=== PATIENT | female | born 1955 | race Caucasian/White ===

== ENCOUNTER 2016-09-12 06:35 | Inpatient (IN) | payer OTHER ==
[~2016-09-12] VITALS: Ht 152.4 cm; Wt 60.4 kg
[~2016-09-12 06:35] MED LIST: ACID REDUCER20 MG PO; ALKA-SELTZER P1 EA12 PO; AMOXICILLIN500 M1 PO; ASPIRIN EC325 MG PO; ATIVAN0.5 MG PO; ATORVASTATIN CA20 MG PO; BANOPHEN25 M2 PO; CLOPIDOGREL75 MG PO; COLACE100 MG PO; COMPAZINE10 MG PO; CYCLOBENZAPRINE10 MG PO; DILAUDID2 MG PO; DILAUDID4 MG PO; FLONASE16 G1 BOTH NARES; GABAPENTIN100 MG PO; GABAPENTIN300 MG PO; GUAIFENESIN WI120 ML PO; KEFLEX250 MG PO; LIPITOR40 MG PO; LISINOPRIL2.5 MG PO; LOMOTIL,LONO1 TABLET PO; METHOCARBAMOL750 MG PO; MOTRIN600 MG PO; NEURONTIN300 MG PO; NEXIUM40 MG PO; NICOTINE PATCH1 EAC2 TD; NITROSTAT0.4 MG SL; NORCO 5/3251 TABLET PO; OMEPRAZOLE40 M1 PO; PERCOCET 10/1 TABLET PO; PERCOCET 5/31 TABLET PO; PERCOCET 7.51 TABLET PO; PHENERGAN25 MG PR; PRILOSEC20 MG PO; PROAIR HFA8.5 GM IH; PROCHLORPERAZIN10 MG PO; SILVER SULFADIA50 GM TP; ST. JOSEPH ASPI81 MG PO; TIZANIDINE HCL4 M1 PO; TIZANIDINE HCL4 MG PO; TOPROL XL25 MG PO; UNABLEOBTAIN; VENTOLIN HFA18 GM IH; ZESTRIL2.5 MG PO; ZOFRAN4 MG PO
[2016-09-12 07:39] VITALS: BP 134/73
[2016-09-12 07:46] LABS: EOSINOPHIL (%) 2.5 % (0-5); EOSINOPHIL COUNT 0.1 K/uL (0-0.3); IMMATURE GRANULOCYTE (%) 0.4 % (0.0-0.7); IMMATURE GRANULOCYTE COUNT 0.2 K/uL; LYMPHOCYTE COUNT 1.3 K/uL (1.0-2.8); MCH 27.4 PG (29.0-34.0); MONOCYTE (%) 15.2 % (3-12); MONOCYTE COUNT 0.9 K/uL (0-0.8); NEUTROPHIL (%) 57.9 % (45-76); NEUTROPHIL COUNT 3.2 K/uL (1.8-6.4); PLATELET COUNT 156 K/uL (156-360); RBC DIS.WIDTH-CV 15.5 % (11.8-14.6); RBC DIS.WIDTH-SD 46.8 % (39-53); RED BLOOD COUNT 4.46 M/uL (3.80-5.20); WHITE BLOOD COUNT 5.6 K/uL (4.1-10.2)
[2016-09-12 07:55] LABS: INTER. NORMALIZED RATIO 1.1; PROTHROMBIN TIME 11.1 (9.2-11.2)
[2016-09-12 08:04] LABS: ANION GAP 7 MEQ/L (2-14); CHLORIDE 106 MEQ/L (99-109); POTASSIUM 3.8 MEQ/L (3.7-5.4); SAMPLE HEMOLYSIS CHECK 0; SAMPLE ICTERIC CHECK 0; SAMPLE LIPEMIA CHECK 0; SODIUM 137 MEQ/L (136-147); TOTAL BILIRUBIN 0.8 MG/DL (0.0-1.0)
[2016-09-12 08:10] LABS: ALKALINE PHOSPHATASE 131 IU/L (3-129); GFR ESTIMATE (CALCULATED) > 59 mL/min/; GLUCOSE 126 mg/dL (70-99); UREA NITROGEN (BUN) 14 mg/dL (9-23)
[2016-09-12 15:20] VITALS: BP 120/68
[2016-09-12 16:00] VITALS: BP 130/73
[2016-09-12 17:00] LABS: METH RESISTANT S AUREUS PCR NEGATIVE (NEGATIVE)
[2016-09-12 17:04] LABS: PROBE CHECK PASS; SPECIMEN PROCESSING CONTROL PASS
[2016-09-12 18:00] VITALS: BP 106/69
[2016-09-12 20:00] VITALS: BP 109/62
[2016-09-12 22:00] VITALS: BP 96/46
[2016-09-13] VITALS (9 sets, daily range): BP systolic 85–111; BP diastolic 43–77
[2016-09-13 06:45] LABS: ANION GAP 11 MEQ/L (2-14); CHLORIDE 104 MEQ/L (99-109); GFR ESTIMATE (CALCULATED) > 59 mL/min/; GLUCOSE 148 mg/dL (70-99); POTASSIUM 4.4 MEQ/L (3.7-5.4); SAMPLE HEMOLYSIS CHECK 0; SAMPLE ICTERIC CHECK 0; SAMPLE LIPEMIA CHECK 0; SODIUM 139 MEQ/L (136-147); UREA NITROGEN (BUN) 16 mg/dL (9-23)
[2016-09-13 06:46] LABS: HEMATOCRIT 27.9 % (36.0-46.0); MCH 27.3 PG (29.0-34.0); MCHC 32.3 G/DL (30.0-36.0); MCV 84.5 FL (83-99); MEAN PLAT.VOLUME 10.4 uM^3 (9.5-12.4); PLATELET COUNT 119 K/uL (156-360); RBC DIS.WIDTH-CV 15.6 % (11.8-14.6); RBC DIS.WIDTH-SD 48.3 % (39-53)
[2016-09-13 06:50] LABS: WHITE BLOOD COUNT 12.3 K/uL (4.1-10.2)
[2016-09-14] VITALS (8 sets, daily range): BP systolic 104–133; BP diastolic 46–72
[2016-09-14 06:43] LABS: HEMATOCRIT 27.5 % (36.0-46.0); MCH 27.6 PG (29.0-34.0); MCV 86.2 FL (83-99); MEAN PLAT.VOLUME 10.9 uM^3 (9.5-12.4); PLATELET COUNT 127 K/uL (156-360); RBC DIS.WIDTH-SD 51.2 % (39-53); RED BLOOD COUNT 3.19 M/uL (3.80-5.20)
[2016-09-14 06:46] LABS: WHITE BLOOD COUNT 8.2 K/uL (4.1-10.2)
[2016-09-14 07:29] LABS: ANION GAP 5 MEQ/L (2-14); CHLORIDE 106 MEQ/L (99-109); GFR ESTIMATE (CALCULATED) > 59 mL/min/; POTASSIUM 4.2 MEQ/L (3.7-5.4); SAMPLE HEMOLYSIS CHECK 0; SAMPLE ICTERIC CHECK 0; SAMPLE LIPEMIA CHECK 0; SODIUM 138 MEQ/L (136-147); UREA NITROGEN (BUN) 18 mg/dL (9-23)
[2016-09-14 07:30] LABS: GLUCOSE 100 mg/dL (70-99)
[2016-09-15] VITALS (21 sets, daily range): BP systolic 72–128; BP diastolic 38–64
[2016-09-15 13:51] LABS: HEMATOCRIT 27.7 % (36.0-46.0); MCH 27.2 PG (29.0-34.0); MCHC 31.4 G/DL (30.0-36.0); MCV 86.6 FL (83-99); MEAN PLAT.VOLUME 10.2 uM^3 (9.5-12.4); PLATELET COUNT 146 K/uL (156-360); RBC DIS.WIDTH-CV 16.3 % (11.8-14.6); RBC DIS.WIDTH-SD 51.5 % (39-53); WHITE BLOOD COUNT 7.3 K/uL (4.1-10.2)
[2016-09-15 14:21] LABS: ANION GAP 7 MEQ/L (2-14); CHLORIDE 104 MEQ/L (99-109); POTASSIUM 3.8 MEQ/L (3.7-5.4); SAMPLE HEMOLYSIS CHECK 0; SAMPLE ICTERIC CHECK 0; SAMPLE LIPEMIA CHECK 0; SODIUM 137 MEQ/L (136-147)
[2016-09-15 14:27] LABS: GFR ESTIMATE (CALCULATED) > 59 mL/min/; GLUCOSE 138 mg/dL (70-99); UREA NITROGEN (BUN) 13 mg/dL (9-23)
[2016-09-16] VITALS (9 sets, daily range): BP systolic 80–126; BP diastolic 42–69
[2016-09-17 03:30] VITALS: BP 119/59
[2016-09-17 06:49] LABS: HEMATOCRIT 29.6 % (36.0-46.0); MCH 27.5 PG (29.0-34.0); MCHC 31.4 G/DL (30.0-36.0); MCV 87.6 FL (83-99); PLATELET COUNT 145 K/uL (156-360); RBC DIS.WIDTH-CV 16.2 % (11.8-14.6); RBC DIS.WIDTH-SD 51.7 % (39-53); RED BLOOD COUNT 3.38 M/uL (3.80-5.20); WHITE BLOOD COUNT 7.4 K/uL (4.1-10.2)
[2016-09-17 07:00] VITALS: BP 110/54
[2016-09-17 07:14] LABS: ANION GAP 8 MEQ/L (2-14); CHLORIDE 99 MEQ/L (99-109); GFR ESTIMATE (CALCULATED) > 59 mL/min/; GLUCOSE 116 mg/dL (70-99); POTASSIUM 4.3 MEQ/L (3.7-5.4); SAMPLE HEMOLYSIS CHECK 0; SAMPLE ICTERIC CHECK 0; SAMPLE LIPEMIA CHECK 0; SODIUM 137 MEQ/L (136-147); UREA NITROGEN (BUN) 11 mg/dL (9-23)
[2016-09-17 11:39] VITALS: BP 104/63
[2016-09-17 16:27] VITALS: BP 92/51
[2016-09-17] MEDS ORDERED: DIGOXIN125 MCG PO (17:03)
[2016-09-17] MEDS ORDERED: OXYCODONE HCL5 MG PO (17:03)
[2016-09-17] MEDS ORDERED: DOCUSATE SODIU100 MG PO (17:03)
== END 2016-09-17 18:54 | disposition home health service (06) | DRG 165 ==
LOC: 4EAST 06:35 → 2SOUTH 06:35 → EDSTATUS 10:43 → SDC 10:43 → 2SOUTH 10:44 → 4WEST 15:13 → 4EAST 09-16 21:39
PROVIDERS: Internal Medicine Critical Care Medicine; Thoracic Surgery (Cardiothoracic Vascular Surgery)
DX: C34.32 Malignant neoplasm of lower lobe, left bronchus or lung (principal); I25.10 Atherosclerotic heart disease of native coronary artery without angina pectoris; Z95.5 Presence of coronary angioplasty implant and graft; I10 Essential (primary) hypertension; J44.9 Chronic obstructive pulmonary disease, unspecified; M19.90 Unspecified osteoarthritis, unspecified site; E78.5 Hyperlipidemia, unspecified; F17.200 Nicotine dependence, unspecified, uncomplicated; I95.1 Orthostatic hypotension
CPT/HCPCS: 71010; 71020; 80048; 80053; 85025; 85027; 85610; 86850; 86900; 86901; 86920; 87641; 88300; 88304; 88305; 88309; 94010; 94640; 94640 76; 94760; 94799; 97530 GO; 97530 GP; 99202; J0131; J0690; J1100; J1160; J1200; J1644; J1885; J2250; J2370; J2405; J2710; J3010; J7050; J7120; P9045; S0020

== ENCOUNTER 2016-10-31 21:00 | Emergency (ER) | payer OTHER ==
[~2016-10-31] VITALS: Ht 152.4 cm; Wt 59.0 kg
[~2016-10-31 21:00] MED LIST changes: +DIGOXIN125 MCG PO; +DOCUSATE SODIU100 MG PO; +OXYCODONE HCL5 MG PO
[2016-10-31] MEDS ORDERED: LIDODERM 5% P1 PATCH TD (22:37)
[2016-10-31 23:08] VITALS: BP 106/55
== END 2016-10-31 23:10 | disposition home or self-care (01) ==
LOC: EME → EDBD 21:00 → EME 21:00
DX: S29.011A Strain of muscle and tendon of front wall of thorax, initial encounter (principal); J90 Pleural effusion, not elsewhere classified; E78.5 Hyperlipidemia, unspecified; I25.2 Old myocardial infarction; F17.200 Nicotine dependence, unspecified, uncomplicated; Z99.81 Dependence on supplemental oxygen; Z90.2 Acquired absence of lung [part of]; Z85.048 Personal history of other malignant neoplasm of rectum, rectosigmoid junction, and anus
CPT/HCPCS: 71020; 99281; 99283

== ENCOUNTER 2017-12-27 20:13 | Inpatient (IN) | payer OTHER ==
[~2017-12-27] VITALS: Ht 152.4 cm; Wt 70.2 kg
[~2017-12-27 20:13] MED LIST changes: +LIDODERM 5% P1 PATCH TD; +LIPITOR10 MG PO
[2017-12-27 20:50] LABS: HEMATOCRIT 39.8 % (36.0-46.0); HEMOGLOBIN 12.9 G/DL (11.9-15.5); MCH 27.2 PG (29.0-34.0); MCHC 32.4 G/DL (30.0-36.0); PLATELET COUNT 247 K/uL (156-360); RBC DIS.WIDTH-CV 22.1 % (11.8-14.6); RBC DIS.WIDTH-SD 66.8 % (39-53); RED BLOOD COUNT 4.74 M/uL (3.80-5.20); WHITE BLOOD COUNT 15.6 K/uL (4.1-10.2)
[2017-12-27 20:51] LABS: BASOPHIL (%) 0.4 % (0-1); BASOPHIL COUNT 0.1 K/uL (0-0.1); EOSINOPHIL (%) 0.3 % (0-5); LYMPHOCYTE (%) 8.2 % (15-42); LYMPHOCYTE COUNT 1.3 K/uL (1.0-2.8); MONOCYTE (%) 13.7 % (3-12); MONOCYTE COUNT 2.1 K/uL (0-0.8); NEUTROPHIL (%) 76.4 % (45-76); NEUTROPHIL COUNT 11.9 K/uL (1.8-6.4)
[2017-12-27 20:54] LABS: BICARBONATE 27.9 mEq/L (22-26); CARBOXY HGB 2.8 % (0-5); COMMENTS - BLOOD GASES C+; METHEMOGLOBIN 1.1 % (0-1.5); O2 FLOW 6 L/MIN; PCO2 43 mm Hg (35-45); PO2 67 mm Hg (80-100); SITE RR; pH 7.42 (7.35-7.45)
[2017-12-27 20:55] LABS: DEVICE NC; TOTAL RESP RATE 16 resp/min
[2017-12-27 21:03] LABS: CHLORIDE 99 mEq/L (99-109); POTASSIUM 2.9 mEq/L (3.7-5.4); SODIUM 136 mEq/L (136-147)
[2017-12-27 21:04] LABS: GLUCOSE 116 mg/dL (70-99)
[2017-12-27 21:08] LABS: CREATININE 0.9 mg/dL (0.6-1.3); GFR ESTIMATE (CALCULATED) > 59 mL/min/
[2017-12-27 21:09] LABS: UREA NITROGEN (BUN) 22 mg/dL (9-23)
[2017-12-27 21:12] LABS: TROP-I INTERPRETATION NEGATIVE; TROPONIN-I < 0.01 ng/mL (0.0-0.30)
[2017-12-27] MEDS ORDERED: IMODIUM A-D2 M2 PO (22:44)
[2017-12-27] MEDS ORDERED: BACLOFEN10 MG PO (22:44)
[2017-12-27] MEDS ORDERED: OXYCODONE HCL10 MG PO (22:44)
[2017-12-28 03:10] VITALS: BP 95/51
[2017-12-28 06:17] LABS: HEMATOCRIT 33.9 % (36.0-46.0); MCH 27.5 PG (29.0-34.0); MCHC 32.4 G/DL (30.0-36.0); MCV 84.8 FL (83-99); PLATELET COUNT 195 K/uL (156-360); RBC DIS.WIDTH-SD 68.5 % (39-53); WHITE BLOOD COUNT 10.9 K/uL (4.1-10.2)
[2017-12-28 06:34] LABS: ALBUMIN 2.3 G/DL (3.2-4.8); ALKALINE PHOSPHATASE 81 IU/L (3-129); ALT (GPT) 15 IU/L (3-49); AST (GOT) 17 IU/L (2-34); CHLORIDE 106 MEQ/L (99-109); CREATININE 0.8 MG/DL (0.6-1.3); GFR ESTIMATE (CALCULATED) > 59 mL/min/; SODIUM 137 MEQ/L (136-147); TOTAL BILIRUBIN 1.5 MG/DL (0.0-1.0); TOTAL PROTEIN 5.6 G/DL (6.4-8.3); UREA NITROGEN (BUN) 20 mg/dL (9-23)
[2017-12-28 06:35] LABS: GLUCOSE 195 mg/dL (70-99); POTASSIUM 4.5 MEQ/L (3.7-5.4)
[2017-12-28 08:00] VITALS: BP 94/87
[2017-12-28 12:00] VITALS: BP 108/57
[2017-12-28 13:41] LABS: MAGNESIUM 1.6 mg/dl (1.3-2.7)
[2017-12-28 18:21] VITALS: BP 106/55
[2017-12-28 19:28] VITALS: BP 97/50
[2017-12-28 23:22] VITALS: BP 97/56
[2017-12-29 03:53] VITALS: BP 108/58
[2017-12-29 06:48] LABS: HEMATOCRIT 37.5 % (36.0-46.0); HEMOGLOBIN 11.8 G/DL (11.9-15.5); MCH 27.1 PG (29.0-34.0); MCHC 31.5 G/DL (30.0-36.0); RBC DIS.WIDTH-CV 22.4 % (11.8-14.6); RBC DIS.WIDTH-SD 69.7 % (39-53); RED BLOOD COUNT 4.36 M/uL (3.80-5.20); WHITE BLOOD COUNT 19.6 K/uL (4.1-10.2)
[2017-12-29 06:53] LABS: PLATELET COUNT 265 K/uL (156-360)
[2017-12-29 07:13] LABS: CHLORIDE 109 MEQ/L (99-109); CREATININE 0.8 MG/DL (0.6-1.3); GFR ESTIMATE (CALCULATED) > 59 mL/min/; GLUCOSE 163 mg/dL (70-99); POTASSIUM 4.1 MEQ/L (3.7-5.4); SODIUM 140 MEQ/L (136-147); UREA NITROGEN (BUN) 23 mg/dL (9-23)
[2017-12-29 07:18] VITALS: BP 109/55
[2017-12-29 11:40] VITALS: BP 122/57
[2017-12-29 15:53] VITALS: BP 106/55
[2017-12-29 21:30] VITALS: BP 145/69
[2017-12-29 23:22] VITALS: BP 105/57
[2017-12-30 04:05] VITALS: BP 97/56
[2017-12-30 07:24] VITALS: BP 108/59
[2017-12-30 12:03] VITALS: BP 110/67
[2017-12-30 17:02] VITALS: BP 117/64
[2017-12-30 19:07] VITALS: BP 122/64
[2017-12-30 23:03] VITALS: BP 127/66
[2017-12-31 02:55] VITALS: BP 100/52
[2017-12-31 07:03] LABS: BASOPHIL (%) 0.3 % (0-1); BASOPHIL COUNT 0.1 K/uL (0-0.1); EOSINOPHIL (%) 0 % (0-5); HEMATOCRIT 37.2 % (36.0-46.0); HEMOGLOBIN 11.2 G/DL (11.9-15.5); IMMATURE GRANULOCYTE (%) 2.3 % (0.0-0.7); LYMPHOCYTE (%) 3.7 % (15-42); LYMPHOCYTE COUNT 0.6 K/uL (1.0-2.8); MCH 26.2 PG (29.0-34.0); MCHC 30.1 G/DL (30.0-36.0); MCV 87.1 FL (83-99); MONOCYTE COUNT 0.8 K/uL (0-0.8); NEUTROPHIL (%) 88.7 % (45-76); PLATELET COUNT 227 K/uL (156-360); RBC DIS.WIDTH-CV 23.1 % (11.8-14.6); RBC DIS.WIDTH-SD 73.7 % (39-53); RED BLOOD COUNT 4.27 M/uL (3.80-5.20); WHITE BLOOD COUNT 15.8 K/uL (4.1-10.2)
[2017-12-31 07:29] LABS: CHLORIDE 113 MEQ/L (99-109); CREATININE 0.7 MG/DL (0.6-1.3); GFR ESTIMATE (CALCULATED) > 59 mL/min/; GLUCOSE 124 mg/dL (70-99); POTASSIUM 4.7 MEQ/L (3.7-5.4); SODIUM 146 MEQ/L (136-147); UREA NITROGEN (BUN) 30 mg/dL (9-23)
[2017-12-31 07:52] VITALS: BP 117/77
[2017-12-31 11:44] VITALS: BP 136/75
[2017-12-31 13:06] LABS: BASE EXCESS -1.5 mEq/L (-3 to +3); BICARBONATE 26.2 mEq/L (22-26); COMMENTS - BLOOD GASES A+C+; METHEMOGLOBIN 1.2 % (0-1.5); PCO2 57 mm Hg (35-45); PO2 253 mm Hg (80-100); SITE RR
[2017-12-31 13:07] LABS: DEVICE NRB; FI02 100 %; O2 FLOW 15 L/MIN; TOTAL RESP RATE 23 resp/min; pH 7.27 (7.35-7.45)
[2017-12-31 15:18] LABS: BASE EXCESS -1.1 mEq/L (-3 to +3); BICARBONATE 25.7 mEq/L (22-26); CARBOXY HGB 2.2 % (0-5); METHEMOGLOBIN 1.7 % (0-1.5); pH 7.31 (7.35-7.45)
[2017-12-31 15:19] LABS: COMMENTS - BLOOD GASES C+; DEVICE HHFNC; FI02 60 %; O2 FLOW 50 L/MIN; PCO2 51 mm Hg (35-45); PO2 60 mm Hg (80-100); SITE RB
[2017-12-31 15:34] VITALS: BP 173/94
[2017-12-31 16:02] VITALS: BP 142/97
[2017-12-31 20:25] VITALS: BP 139/79
[2018-01-01 00:01] LABS: APPEARANCE CLEAR ((CLEAR)); BILIRUBIN NEGATIVE; BLOOD MODERATE; COLOR YELLOW ((YELLOW)); GLUCOSE (STRIP) NEGATIVE; KETONES NEGATIVE; LEUKOCYTES NEGATIVE; NITRITE NEGATIVE; PROTEIN (STRIP) 30; SPECIFIC GRAVITY 1.035 (1.000-1.030); UROBILINOGEN 0.2 MG/DL (0.2-1.0)
[2018-01-01 00:18] LABS: BACTERIA NONE SEEN /HPF; EPITHELIAL CELLS RARE /HPF; MUCUS TRACE /LPF; UCUL ADDED? NO; WHITE BLOOD CELLS 0-5 /HPF (0-5)
[2018-01-01 00:26] VITALS: BP 145/68
[2018-01-01 04:50] VITALS: BP 144/79
[2018-01-01 05:28] LABS: BASOPHIL (%) 0.2 % (0-1); EOSINOPHIL (%) 0 % (0-5); HEMATOCRIT 34.5 % (36.0-46.0); HEMOGLOBIN 10.6 G/DL (11.9-15.5); IMMATURE GRANULOCYTE (%) 2.7 % (0.0-0.7); LYMPHOCYTE (%) 4.6 % (15-42); LYMPHOCYTE COUNT 0.6 K/uL (1.0-2.8); MCH 27.1 PG (29.0-34.0); MCHC 30.7 G/DL (30.0-36.0); MCV 88.2 FL (83-99); MONOCYTE (%) 4.7 % (3-12); MONOCYTE COUNT 0.6 K/uL (0-0.8); NEUTROPHIL (%) 87.8 % (45-76); NEUTROPHIL COUNT 11.1 K/uL (1.8-6.4); PLATELET COUNT 224 K/uL (156-360); RBC DIS.WIDTH-CV 23.1 % (11.8-14.6); RBC DIS.WIDTH-SD 73.3 % (39-53); RED BLOOD COUNT 3.91 M/uL (3.80-5.20); WHITE BLOOD COUNT 12.6 K/uL (4.1-10.2)
[2018-01-01 05:57] LABS: CHLORIDE 114 MEQ/L (99-109); CREATININE 0.6 MG/DL (0.6-1.3); GFR ESTIMATE (CALCULATED) > 59 mL/min/; GLUCOSE 126 mg/dL (70-99); POTASSIUM 5.3 MEQ/L (3.7-5.4); SODIUM 146 MEQ/L (136-147); UREA NITROGEN (BUN) 31 mg/dL (9-23)
[2018-01-01 06:03] LABS: PCO2 55 mm Hg (35-45); PO2 61 mm Hg (80-100); pH 7.33 (7.35-7.45)
[2018-01-01 06:04] LABS: CARBOXY HGB 2.3 % (0-5); COMMENTS - BLOOD GASES C+; DEVICE HHFC; FI02 80 %; METHEMOGLOBIN 1.6 % (0-1.5); SITE RR; TOTAL RESP RATE 26 resp/min
[2018-01-01 08:52] VITALS: BP 143/71
[2018-01-01 08:55] LABS: IMM.RETIC FRACTION 12.5 % (3-19); RETIC HGB EQUIVALENT 30.4 (28-36); RETICULOCYTE COUNT 1.8 % (0.5-1.8)
[2018-01-01 10:08] LABS: IRON 58 MCG/DL (35-150); MAGNESIUM 2.2 mg/dl (1.3-2.7)
[2018-01-01 10:09] LABS: TRANSFERRIN (TIBC) 181.8 mg/dL (215-380); TRANSFERRIN SATUR. 32 % (20-55)
[2018-01-01 10:44] LABS: FERRITIN 76 NG/ML (10-291)
[2018-01-01 11:24] LABS: FOLIC ACID (FOLATE) 9.5 NG/ML (5.0-22.0)
[2018-01-01 12:19] LABS: HEMOGLOBIN A1c (GLYCOHEMOGLOB) 5.8 % (Below 5.7)
[2018-01-01 12:53] VITALS: BP 133/76
[2018-01-01 16:21] VITALS: BP 126/74
[2018-01-01 19:30] VITALS: BP 143/68
[2018-01-02 00:10] VITALS: BP 154/77
[2018-01-02 04:36] VITALS: BP 142/69
[2018-01-02 05:00] LABS: BASOPHIL (%) 0.3 % (0-1); EOSINOPHIL (%) 0 % (0-5); HEMATOCRIT 35.9 % (36.0-46.0); HEMOGLOBIN 11.3 G/DL (11.9-15.5); IMMATURE GRANULOCYTE (%) 4.2 % (0.0-0.7); LYMPHOCYTE (%) 5.6 % (15-42); LYMPHOCYTE COUNT 0.4 K/uL (1.0-2.8); MCH 27.7 PG (29.0-34.0); MCHC 31.5 G/DL (30.0-36.0); MONOCYTE (%) 4.3 % (3-12); MONOCYTE COUNT 0.3 K/uL (0-0.8); NEUTROPHIL (%) 85.6 % (45-76); NEUTROPHIL COUNT 6.8 K/uL (1.8-6.4); PLATELET COUNT 199 K/uL (156-360); RBC DIS.WIDTH-CV 22.6 % (11.8-14.6); RBC DIS.WIDTH-SD 72.4 % (39-53); RED BLOOD COUNT 4.08 M/uL (3.80-5.20); WHITE BLOOD COUNT 7.9 K/uL (4.1-10.2)
[2018-01-02 05:08] LABS: ALBUMIN 2.8 g/dL (3.2-4.8); POTASSIUM 5.1 mEq/L (3.7-5.4); SODIUM 148 mEq/L (136-147)
[2018-01-02 05:10] LABS: GLUCOSE 154 mg/dL (70-99); TOTAL PROTEIN 5.9 g/dL (6.4-8.3)
[2018-01-02 05:12] LABS: TOTAL BILIRUBIN 0.9 mg/dL (0.0-1.0)
[2018-01-02 05:14] LABS: ALKALINE PHOSPHATASE 129 IU/L (3-129); CREATININE 0.7 mg/dL (0.6-1.3); GFR ESTIMATE (CALCULATED) > 59 mL/min/
[2018-01-02 05:15] LABS: UREA NITROGEN (BUN) 36 mg/dL (9-23)
[2018-01-02 05:16] LABS: AST (GOT) 32 IU/L (2-34)
[2018-01-02 05:17] LABS: ALT (GPT) 42 IU/L (3-49)
[2018-01-02 05:20] LABS: CHLORIDE 109 mEq/L (99-109)
[2018-01-02 07:44] VITALS: BP 131/72
[2018-01-02 11:40] VITALS: BP 137/66
[2018-01-02 21:00] VITALS: BP 144/69
[2018-01-03] VITALS (7 sets, daily range): BP systolic 104–146; BP diastolic 56–70
[2018-01-03 06:08] LABS: BASOPHIL (%) 0.2 % (0-1); EOSINOPHIL (%) 0 % (0-5); HEMATOCRIT 34.6 % (36.0-46.0); HEMOGLOBIN 10.9 G/DL (11.9-15.5); LYMPHOCYTE COUNT 0.4 K/uL (1.0-2.8); MCH 27.8 PG (29.0-34.0); MCHC 31.5 G/DL (30.0-36.0); MCV 88.3 FL (83-99); MONOCYTE (%) 3.4 % (3-12); MONOCYTE COUNT 0.3 K/uL (0-0.8); NEUTROPHIL (%) 88.4 % (45-76); PLATELET COUNT 198 K/uL (156-360); RBC DIS.WIDTH-CV 22.6 % (11.8-14.6); RBC DIS.WIDTH-SD 71.7 % (39-53); RED BLOOD COUNT 3.92 M/uL (3.80-5.20)
[2018-01-03 06:36] LABS: ALBUMIN 2.7 G/DL (3.2-4.8); CHLORIDE 105 MEQ/L (99-109); CREATININE 0.6 MG/DL (0.6-1.3); GFR ESTIMATE (CALCULATED) > 59 mL/min/; GLUCOSE 175 mg/dL (70-99); TOTAL PROTEIN 5.8 G/DL (6.4-8.3); UREA NITROGEN (BUN) 35 mg/dL (9-23)
[2018-01-03 06:38] LABS: ALKALINE PHOSPHATASE 106 IU/L (3-129); ALT (GPT) 55 IU/L (3-49); AST (GOT) 56 IU/L (2-34); SODIUM 140 MEQ/L (136-147); TOTAL BILIRUBIN 0.8 MG/DL (0.0-1.0)
[2018-01-04 03:53] VITALS: BP 118/76
[2018-01-04 05:25] LABS: HEMATOCRIT 37.2 % (36.0-46.0); HEMOGLOBIN 11.5 G/DL (11.9-15.5); MCH 26.7 PG (29.0-34.0); MCHC 30.9 G/DL (30.0-36.0); MCV 86.5 FL (83-99); PLATELET COUNT 194 K/uL (156-360); RBC DIS.WIDTH-CV 22.3 % (11.8-14.6); RBC DIS.WIDTH-SD 68.7 % (39-53); WHITE BLOOD COUNT 10.1 K/uL (4.1-10.2)
[2018-01-04 05:53] LABS: CHLORIDE 103 MEQ/L (99-109); CREATININE 0.5 MG/DL (0.6-1.3); GFR ESTIMATE (CALCULATED) > 59 mL/min/; GLUCOSE 136 mg/dL (70-99); POTASSIUM 5.1 MEQ/L (3.7-5.4); SODIUM 139 MEQ/L (136-147); UREA NITROGEN (BUN) 32 mg/dL (9-23)
[2018-01-04 07:19] VITALS: BP 120/58
[2018-01-04 11:31] VITALS: BP 101/57
[2018-01-04 15:11] VITALS: BP 129/56
[2018-01-04 19:15] VITALS: BP 118/59
[2018-01-05 00:33] VITALS: BP 126/71
[2018-01-05 04:11] VITALS: BP 108/74
[2018-01-05 04:54] LABS: HEMATOCRIT 38.5 % (36.0-46.0); HEMOGLOBIN 12.1 G/DL (11.9-15.5); MCH 27.4 PG (29.0-34.0); MCHC 31.4 G/DL (30.0-36.0); MCV 87.1 FL (83-99); PLATELET COUNT 174 K/uL (156-360); RBC DIS.WIDTH-CV 22.2 % (11.8-14.6); RBC DIS.WIDTH-SD 69.5 % (39-53); RED BLOOD COUNT 4.42 M/uL (3.80-5.20); WHITE BLOOD COUNT 8.7 K/uL (4.1-10.2)
[2018-01-05 05:05] LABS: CHLORIDE 104 mEq/L (99-109); POTASSIUM 5.1 mEq/L (3.7-5.4); SODIUM 142 mEq/L (136-147)
[2018-01-05 05:07] LABS: GLUCOSE 170 mg/dL (70-99)
[2018-01-05 05:11] LABS: CREATININE 0.7 mg/dL (0.6-1.3); GFR ESTIMATE (CALCULATED) > 59 mL/min/
[2018-01-05 05:12] LABS: UREA NITROGEN (BUN) 41 mg/dL (9-23)
[2018-01-05 07:09] VITALS: BP 100/66
[2018-01-05 11:05] VITALS: BP 137/80
[2018-01-05 15:01] VITALS: BP 107/57
[2018-01-05 20:50] VITALS: BP 146/73
[2018-01-06] VITALS (7 sets, daily range): BP systolic 111–131; BP diastolic 65–83
[2018-01-06 05:14] LABS: HEMATOCRIT 40.2 % (36.0-46.0); HEMOGLOBIN 12.5 G/DL (11.9-15.5); MCH 26.8 PG (29.0-34.0); MCHC 31.1 G/DL (30.0-36.0); MCV 86.1 FL (83-99); RBC DIS.WIDTH-CV 22.5 % (11.8-14.6); RBC DIS.WIDTH-SD 68.4 % (39-53); RED BLOOD COUNT 4.67 M/uL (3.80-5.20); WHITE BLOOD COUNT 16.6 K/uL (4.1-10.2)
[2018-01-06 05:25] LABS: PLATELET COUNT 244 K/uL (156-360)
[2018-01-06 05:41] LABS: CHLORIDE 104 MEQ/L (99-109); CREATININE 0.7 MG/DL (0.6-1.3); GFR ESTIMATE (CALCULATED) > 59 mL/min/; GLUCOSE 144 mg/dL (70-99); SODIUM 141 MEQ/L (136-147); UREA NITROGEN (BUN) 42 mg/dL (9-23)
[2018-01-07 04:00] VITALS: BP 123/70
[2018-01-07 08:10] VITALS: BP 109/69
[2018-01-07 12:49] VITALS: BP 110/58
[2018-01-07] MEDS ORDERED: DULERA 200 MCG/13 GM IH (14:18)
[2018-01-07] MEDS ORDERED: CYANOCOBALAM1000 MCG PO (14:18)
[2018-01-07] MEDS ORDERED: NICOTINE PATCH1 EAC2 TD (14:18)
[2018-01-07] MEDS ORDERED: PREDNISONE10 MG PO (14:18)
[2018-01-07] MEDS ORDERED: FOLIC ACID1 MG PO (14:18)
[2018-01-07] MEDS ORDERED: FERROUS SULFAT325 MG PO (14:18)
[2018-01-07] MEDS ORDERED: PROAIR HFA8.5 GM IH (14:18)
[2018-01-07] MEDS ORDERED: SPIRIVA RESPIMAT4 GM IH (14:18)
[2018-01-07] MEDS ORDERED: CALCIUM 500 MG1 EACH PO (14:26)
== END 2018-01-07 17:11 | disposition home health service (06) | DRG 871 ==
LOC: EME → EDBD 20:13 → 4EAST 23:12 → EDOF 23:12 → 5EAST 23:12 → ENRESERV 23:13 → 5EAST 12-28 00:41 → ENRESERV 12-31 14:02 → 4EAST 12-31 15:07
PROVIDERS: Emergency Medicine; Hospitalist; Internal Medicine; Internal Medicine Pulmonary Disease; Physician Assistant
DX: A41.9 Sepsis, unspecified organism (principal); J96.02 Acute respiratory failure with hypercapnia; J18.9 Pneumonia, unspecified organism; J44.1 Chronic obstructive pulmonary disease with (acute) exacerbation; N39.0 Urinary tract infection, site not specified; N17.9 Acute kidney failure, unspecified; J96.01 Acute respiratory failure with hypoxia; E11.65 Type 2 diabetes mellitus with hyperglycemia; I25.10 Atherosclerotic heart disease of native coronary artery without angina pectoris; I10 Essential (primary) hypertension; E78.5 Hyperlipidemia, unspecified; F17.210 Nicotine dependence, cigarettes, uncomplicated; C34.32 Malignant neoplasm of lower lobe, left bronchus or lung; E87.6 Hypokalemia; I27.20 Pulmonary hypertension, unspecified; J84.10 Pulmonary fibrosis, unspecified; Z68.29 Body mass index [BMI] 29.0-29.9, adult; E66.9 Obesity, unspecified; J44.0 Chronic obstructive pulmonary disease with (acute) lower respiratory infection; D64.9 Anemia, unspecified; R79.1 Abnormal coagulation profile; K59.00 Constipation, unspecified; K21.9 Gastro-esophageal reflux disease without esophagitis; Y95 Nosocomial condition; B95.3 Streptococcus pneumoniae as the cause of diseases classified elsewhere; T38.0X5A Adverse effect of glucocorticoids and synthetic analogues, initial encounter; Z95.5 Presence of coronary angioplasty implant and graft; Z85.048 Personal history of other malignant neoplasm of rectum, rectosigmoid junction, and anus; Z85.118 Personal history of other malignant neoplasm of bronchus and lung; Z79.4 Long term (current) use of insulin; Z85.528 Personal history of other malignant neoplasm of kidney; Z90.2 Acquired absence of lung [part of]; Z92.21 Personal history of antineoplastic chemotherapy; Z92.3 Personal history of irradiation; I25.2 Old myocardial infarction; Z82.49 Family history of ischemic heart disease and other diseases of the circulatory system; Z83.3 Family history of diabetes mellitus; J15.8 Pneumonia due to other specified bacteria
CPT/HCPCS: 36600; 70450; 71045; 71046; 71250; 71275; 80048; 80053; 80202; 81003; 82607; 82728; 82746; 82803; 82948; 83036; 83540; 83605; 83735; 83880; 84145 90; 84466; 84484; 85025; 85027; 85046; 85379; 87040; 87070; 87106; 87205; 87449; 87502; 92610 GN; 93005; 93306; 94010; 94640; 94640 76; 94667; 94668; 94760; 94799; 99281; 99285; C1753; J0692; J0696; J1644; J1815; J1956; J2920; J2930; J3370; J7030; J7070; J7512; S0028

== ENCOUNTER 2018-01-27 14:43 | Inpatient (IN) | payer OTHER ==
[~2018-01-27] VITALS: Ht 160 cm; Wt 74.5 kg
[~2018-01-27 14:43] MED LIST changes: +BACLOFEN10 MG PO; +CALCIUM 500 MG1 EACH PO; +CYANOCOBALAM1000 MCG PO; +DULERA 200 MCG/13 GM IH; +FERROUS SULFAT325 MG PO; +FOLIC ACID1 MG PO; +IMODIUM A-D2 M2 PO; +OXYCODONE HCL10 MG PO; +PREDNISONE10 MG PO; +SPIRIVA RESPIMAT4 GM IH
[2018-01-27 15:59] LABS: HEMATOCRIT 37.1 % (36.0-46.0); HEMOGLOBIN 12.3 G/DL (11.9-15.5); MCHC 33.2 G/DL (30.0-36.0); MCV 87.5 FL (83-99); NRBC (%) 0.4 /100 WBC (0-0); RBC DIS.WIDTH-CV 22.8 % (11.8-14.6); RED BLOOD COUNT 4.24 M/uL (3.80-5.20); WHITE BLOOD COUNT 4.7 K/uL (4.1-10.2)
[2018-01-27 16:12] LABS: ALBUMIN 2.6 g/dL (3.2-4.8)
[2018-01-27 16:13] LABS: CHLORIDE 103 mEq/L (99-109); POTASSIUM 3.4 mEq/L (3.7-5.4); SODIUM 141 mEq/L (136-147)
[2018-01-27 16:15] LABS: GLUCOSE 115 mg/dL (70-99); TOTAL PROTEIN 6.1 g/dL (6.4-8.3)
[2018-01-27 16:17] LABS: TOTAL BILIRUBIN 1.6 mg/dL (0.0-1.0)
[2018-01-27 16:18] LABS: ALKALINE PHOSPHATASE 208 IU/L (3-129)
[2018-01-27 16:19] LABS: CREATININE 0.9 mg/dL (0.6-1.3); GFR ESTIMATE (CALCULATED) > 59 mL/min/
[2018-01-27 16:20] LABS: AST (GOT) 28 IU/L (2-34); UREA NITROGEN (BUN) 19 mg/dL (9-23)
[2018-01-27 16:22] LABS: ALT (GPT) 26 IU/L (3-49)
[2018-01-27 17:49] LABS: BASE EXCESS 1.2 mEq/L (-3 to +3); CARBOXY HGB 2.1 % (0-5); COMMENTS - BLOOD GASES A+C+; DEVICE HFNC; METHEMOGLOBIN 1.3 % (0-1.5); O2 FLOW 6 L/MIN; PCO2 41 mm Hg (35-45); PO2 52 mm Hg (80-100); SITE LR; pH 7.41 (7.35-7.45)
[2018-01-27 17:51] LABS: PLATELET COUNT 174 K/uL (156-360)
[2018-01-27 18:15] LABS: INTER. NORMALIZED RATIO 1.2
[2018-01-27 18:17] LABS: PTT 27.6 SEC (25-37)
[2018-01-27] MEDS ORDERED: SPIRIVA RESPIMAT4 GM IH (19:55)
[2018-01-27] MEDS ORDERED: IRON325 M1 PO (19:56)
[2018-01-27] MEDS ORDERED: LASIX20 MG PO (19:57)
[2018-01-28] VITALS (9 sets, daily range): BP systolic 80–102; BP diastolic 47–67
[2018-01-28 00:08] LABS: COMMENTS - BLOOD GASES A+C+; DEVICE HIFLONASCAN; O2 FLOW 7 L/MIN; PCO2 39 mm Hg (35-45); PO2 57 mm Hg (80-100); SITE RRADIAL; TOTAL RESP RATE 22 resp/min
[2018-01-28 00:09] LABS: BICARBONATE 24.2 mEq/L (22-26); CARBOXY HGB 2.1 % (0-5); METHEMOGLOBIN 1.1 % (0-1.5)
[2018-01-28 01:00] LABS: APPEARANCE CLEAR ((CLEAR)); BILIRUBIN NEGATIVE; BLOOD NEGATIVE; COLOR YELLOW ((YELLOW)); GLUCOSE (STRIP) NEGATIVE; KETONES NEGATIVE; LEUKOCYTES NEGATIVE; NITRITE NEGATIVE; PROTEIN (STRIP) NEGATIVE; SPECIFIC GRAVITY 1.049 (1.000-1.030); UROBILINOGEN 0.2 MG/DL (0.2-1.0)
[2018-01-28 01:46] LABS: AMPHETAMINE NEGATIVE (500 ng/mL); BARBITURATES NEGATIVE (200 ng/mL); BENZODIAZEPINES NEGATIVE (150 ng/mL); BUPRENORPHINE NEGATIVE (10 ng/mL); COCAINE NEGATIVE (150 ng/mL); METHADONE NEGATIVE (200 ng/mL); METHAMPHETAMINE NEGATIVE (500 ng/mL); OPIATES (MORPHINE) NEGATIVE (100 ng/mL); OXYCODONE NEGATIVE (100 ng/mL); PHENCYCLIDINE NEGATIVE (25 ng/mL); PROPOXYPHENE NEGATIVE (300 ng/mL); THC CANNABINOIDS NEGATIVE (50 ng/mL); TRICYCLIC ANTIDEPRESSANTS NEGATIVE (300 ng/mL)
[2018-01-28 09:08] LABS: HEMATOCRIT 29.1 % (36.0-46.0); HEMOGLOBIN 9.2 G/DL (11.9-15.5); MCH 28.3 PG (29.0-34.0); MCHC 31.6 G/DL (30.0-36.0); MCV 89.5 FL (83-99); PLATELET COUNT 162 K/uL (156-360); RBC DIS.WIDTH-CV 22.7 % (11.8-14.6); RBC DIS.WIDTH-SD 73.6 % (39-53); RED BLOOD COUNT 3.25 M/uL (3.80-5.20); WHITE BLOOD COUNT 4.9 K/uL (4.1-10.2)
[2018-01-28 09:19] LABS: CHLORIDE 108 MEQ/L (99-109); CREATININE 0.7 MG/DL (0.6-1.3); GFR ESTIMATE (CALCULATED) > 59 mL/min/; GLUCOSE 135 mg/dL (70-99); POTASSIUM 3.8 MEQ/L (3.7-5.4); SODIUM 142 MEQ/L (136-147); UREA NITROGEN (BUN) 21 mg/dL (9-23)
[2018-01-28 09:59] LABS: TYPE OF FLUID PARACENTESIS
[2018-01-28 10:26] LABS: APPEARANCE SL. HAZY-YELLOW; BODY FLUID RBC'S < 1000 /MM^3 (0-100); BODY FLUID WBC'S 266 /MM^3 (0-500)
[2018-01-28 10:50] LABS: BODY FLUID GLUCOSE 172 MG/DL; BODY FLUID LDH 42 IU/L; BODY FLUID PROTEIN < 3.0 G/DL
[2018-01-28 11:03] LABS: BODY FLUID EOSINOPHILS 1 % (0-25); MONONUCLEAR WBC'S 81 %; POLYNUCLEAR WBC'S 18 % (0-25)
[2018-01-28 11:25] LABS: HEPATITIS B SURFACE ANTIGEN Nonreactive
[2018-01-28 11:26] LABS: HEPATITIS B SURFACE ANTIBODY Nonreactive; HEPATITIS C ANTIBODY Nonreactive
[2018-01-28 11:27] LABS: ANTI-HEPATITIS A VIRUS (IGM) Nonreactive; ANTI-HEPATITIS B CORE (IGM) Nonreactive
[2018-01-29 03:30] VITALS: BP 98/53
[2018-01-29 05:11] LABS: HEMATOCRIT 29.4 % (36.0-46.0); HEMOGLOBIN 9.3 G/DL (11.9-15.5); MCH 28.1 PG (29.0-34.0); MCHC 31.6 G/DL (30.0-36.0); MCV 88.8 FL (83-99); PLATELET COUNT 192 K/uL (156-360); RBC DIS.WIDTH-SD 75.4 % (39-53); RED BLOOD COUNT 3.31 M/uL (3.80-5.20); WHITE BLOOD COUNT 5.2 K/uL (4.1-10.2)
[2018-01-29 06:24] LABS: ALBUMIN 2.2 G/DL (3.2-4.8); ALKALINE PHOSPHATASE 113 IU/L (3-129); ALT (GPT) 16 IU/L (3-49); AST (GOT) 22 IU/L (2-34); CHLORIDE 113 MEQ/L (99-109); CREATININE 0.6 MG/DL (0.6-1.3); GFR ESTIMATE (CALCULATED) > 59 mL/min/; POTASSIUM 3.7 MEQ/L (3.7-5.4); SODIUM 145 MEQ/L (136-147); TOTAL PROTEIN 4.9 G/DL (6.4-8.3); UREA NITROGEN (BUN) 21 mg/dL (9-23)
[2018-01-29 06:25] LABS: CHLORIDE 113 MEQ/L (99-109); CREATININE 0.6 MG/DL (0.6-1.3); GFR ESTIMATE (CALCULATED) > 59 mL/min/; GLUCOSE 85 mg/dL (70-99); POTASSIUM 4.1 MEQ/L (3.7-5.4); SODIUM 145 MEQ/L (136-147); UREA NITROGEN (BUN) 21 mg/dL (9-23)
[2018-01-29 06:26] LABS: GLUCOSE 83 mg/dL (70-99)
[2018-01-29 09:16] VITALS: BP 108/53
[2018-01-29 13:08] VITALS: BP 135/62
[2018-01-29 15:51] VITALS: BP 107/62
[2018-01-29] MEDS ORDERED: XIFAXAN550 MG PO (16:43)
[2018-01-29 20:15] VITALS: BP 123/67
[2018-01-30 00:52] VITALS: BP 122/60
[2018-01-30 04:03] VITALS: BP 113/56
[2018-01-30] MEDS ORDERED: SPIRONOLACTONE50 MG PO (12:03)
[2018-01-30] MEDS ORDERED: CONSTULOSE10 GM/15 M PO (12:04)
[2018-01-30] MEDS ORDERED: LEVAQUIN750 MG PO (12:28)
[2018-01-30] MEDS ORDERED: ATIVAN0.5 MG PO (13:41)
[2018-01-30] MEDS ORDERED: MORPHINE CON20 MG/M1 PO (13:41)
[2018-01-30] MEDS ORDERED: ANASPAZ0.125 MG SL (13:41)
[2018-01-31] LABS: BODY FLUID PH 8.1 (())
== END 2018-01-30 17:07 | disposition hospice, home (50) | DRG 189 ==
LOC: EME 14:43 → EDOF 22:58 → 4EAST 22:58 → CANRESERV 23:01 → ENRESERV 23:01 → EDOF 23:50 → ENRESERV 23:52 → 4EAST 01-28 01:03
PROVIDERS: Emergency Medicine; Hospitalist; Internal Medicine; Internal Medicine Gastroenterology
PROC: 0W9G30Z Drainage of Peritoneal Cavity with Drainage Device, Percutaneous Approach (ICD-10-PCS; principal; 2018-01-28)
DX: J96.01 Acute respiratory failure with hypoxia (principal); J18.9 Pneumonia, unspecified organism; K72.00 Acute and subacute hepatic failure without coma; J44.0 Chronic obstructive pulmonary disease with (acute) lower respiratory infection; J44.1 Chronic obstructive pulmonary disease with (acute) exacerbation; R18.8 Other ascites; K76.6 Portal hypertension; J90 Pleural effusion, not elsewhere classified; F05 Delirium due to known physiological condition; Z66 Do not resuscitate; Z51.5 Encounter for palliative care; I48.92 Unspecified atrial flutter; D64.9 Anemia, unspecified; F41.9 Anxiety disorder, unspecified; Y95 Nosocomial condition; J96.02 Acute respiratory failure with hypercapnia; E78.5 Hyperlipidemia, unspecified; I10 Essential (primary) hypertension; I25.10 Atherosclerotic heart disease of native coronary artery without angina pectoris; I27.20 Pulmonary hypertension, unspecified; J20.9 Acute bronchitis, unspecified; J84.10 Pulmonary fibrosis, unspecified; K21.9 Gastro-esophageal reflux disease without esophagitis; R16.1 Splenomegaly, not elsewhere classified; K80.20 Calculus of gallbladder without cholecystitis without obstruction; L22 Diaper dermatitis; R32 Unspecified urinary incontinence; L89.150 Pressure ulcer of sacral region, unstageable; I95.9 Hypotension, unspecified; R00.0 Tachycardia, unspecified; R45.4 Irritability and anger; R19.7 Diarrhea, unspecified; K74.69 Other cirrhosis of liver; F10.11 Alcohol abuse, in remission; Z79.82 Long term (current) use of aspirin; Z99.81 Dependence on supplemental oxygen; Z87.891 Personal history of nicotine dependence; Z90.2 Acquired absence of lung [part of]; Z87.01 Personal history of pneumonia (recurrent); Z92.21 Personal history of antineoplastic chemotherapy; Z92.3 Personal history of irradiation; Z95.5 Presence of coronary angioplasty implant and graft; Z85.118 Personal history of other malignant neoplasm of bronchus and lung; Z85.048 Personal history of other malignant neoplasm of rectum, rectosigmoid junction, and anus; I25.2 Old myocardial infarction; Z88.5 Allergy status to narcotic agent; Z79.51 Long term (current) use of inhaled steroids; Z91.14 Patient's other noncompliance with medication regimen; Z82.49 Family history of ischemic heart disease and other diseases of the circulatory system; Z83.3 Family history of diabetes mellitus
CPT/HCPCS: 36600; 49083; 70450; 71046; 71275; 80048; 80053; 80069; 80074; 80306 90; 81003; 82140; 82803; 82945; 83605; 83615 91; 83880; 83986 90; 84145 90; 84157; 85025; 85027; 85610; 85730; 86706; 87040; 87070; 87075; 87205; 87641; 89051; 93005; 93970; 94640; 94640 76; 94799; 99202; 99281; 99285; J0153; J0692; J1644; J1956; J2310; J2930; J3370; J7040; P9047

== ENCOUNTER 2018-02-11 08:26 | Emergency (ER) | payer OTHER ==
[~2018-02-11] VITALS: Ht 152.4 cm; Wt 64.5 kg
[~2018-02-11 08:26] MED LIST changes: +ANASPAZ0.125 MG SL; +CONSTULOSE10 GM/15 M PO; +IRON325 M1 PO; +LASIX20 MG PO; +LEVAQUIN750 MG PO; +MORPHINE CON20 MG/M1 PO; +SPIRONOLACTONE50 MG PO; +XIFAXAN550 MG PO
[2018-02-11] MEDS ORDERED: OXYCODONE HCL10 MG PO (09:59)
[2018-02-11 11:30] VITALS: BP 113/61
== END 2018-02-11 12:09 | disposition home or self-care (01) ==
LOC: EME 08:26
DX: S42.002A Fracture of unspecified part of left clavicle, initial encounter for closed fracture (principal); S00.83XA Contusion of other part of head, initial encounter; W01.0XXA Fall on same level from slipping, tripping and stumbling without subsequent striking against object, initial encounter; Y92.009 Unspecified place in unspecified non-institutional (private) residence as the place of occurrence of the external cause; J44.9 Chronic obstructive pulmonary disease, unspecified; Z99.81 Dependence on supplemental oxygen; K74.60 Unspecified cirrhosis of liver; E78.5 Hyperlipidemia, unspecified; F41.9 Anxiety disorder, unspecified; I25.2 Old myocardial infarction; Z87.891 Personal history of nicotine dependence; Z85.048 Personal history of other malignant neoplasm of rectum, rectosigmoid junction, and anus; Z88.5 Allergy status to narcotic agent
CPT/HCPCS: 71046; 73030; 99281; 99284